=== PATIENT | male | born 2000 | race Caucasian/White ===

== ENCOUNTER 2022-01-06 14:04 | Emergency (ER) | payer SELFPAY ==
[~2022-01-06] VITALS: Ht 165.1 cm; Wt 85.0 kg
[2022-01-06 15:25] VITALS: BP 130/79
[2022-01-06] MEDS ORDERED: IBUP800T27 PO (15:28)
[2022-01-06] MEDS ORDERED: CEPH-509 PO (15:28)
== END 2022-01-06 15:41 | disposition home or self-care (01) ==
LOC: ER 14:04
DX: L60.0 Ingrowing nail (principal)